=== PATIENT | female | born 1965 | race Caucasian/White ===

== ENCOUNTER 2023-11-25 16:40 | Emergency (ER) | payer MEDICAID ==
[~2023-11-25] VITALS: Ht 162.6 cm; Wt 65.8 kg
[2023-11-25 16:46] VITALS: BP 138/90; PULSE 114; RESP 18; TEMP 98.2; O2SAT 97
[2023-11-25 17:22] VITALS: O2SAT 97
[2023-11-25 18:06] LABS: BASOPHILS % (AUTO) 0.6 % (0.0-2.0); EOSINOPHILS % (AUTO) 0.7 % (0.0-4.0); HEMATOCRIT 39.7 % (36-48); HEMOGLOBIN 13.5 g/dL (12.0-16.0); LYMPHOCYTES # (AUTO) 1.6 K/uL (2.5-16.5); MEAN CORPUSCULAR HEMOGLOBIN 31 pg (27-31); MEAN CORPUSCULAR HGB CONC 34 g/dL (33-37); MEAN CORPUSCULAR VOLUME 90.8 fL (80-94); MONOCYTES # (AUTO) 0.5 K/uL (0.8-1.0); MONOCYTES % (AUTO) 7.9 % (1.7-9.3); NEUTROPHILS # (AUTO) 4.6 K/uL (1.8-7.7); NEUTROPHILS % (AUTO) 67.8 % (42.2-75.2); PLATELET COUNT (AUTO) 214 K/uL (140-450); RED BLOOD CELL COUNT(AUTO) 4.38 MIL/uL (4.20-5.40); RED CELL DISTRIBUTION WIDTH 13.9 % (11.6-13.7); WHITE BLOOD COUNT (AUTO) 6.9 K/uL (4.8-10.8)
[2023-11-25] MEDS: NACL 0.9% 1,000 ML IV ONE (18:06)
[2023-11-25] MEDS: KETOROLAC 30 MG/ML VIAL IVP ONE (18:24)
[2023-11-25] MEDS: LORazepam 2 MG/ML VIAL IVP ONE (18:24)
[2023-11-25] MEDS: ONDANSETRON 4 MG/2 ML VIAL IVP ONE (18:25)
[2023-11-25 18:27] LABS: ANION GAP 12.3 (8-16); CALCIUM 9.9 mg/dL (8.5-10.1); CARBON DIOXIDE 27.2 mmol/L (21-32); CREATININE 0.8 mg/dL (0.6-1.3); POTASSIUM 3.5 mmol/L (3.5-5.1)
[2023-11-25 18:31] LABS: ALBUMIN 3.8 g/dL (3.4-5.0); BILIRUBIN,DIRECT 0.1 mg/dL (0.0-0.3); TOTAL BILIRUBIN 0.3 mg/dL (0.0-1.0); TOTAL PROTEIN, SERUM 9.5 g/dL (6.4-8.2)
[2023-11-25 18:58] LABS: APPEARANCE,URINE CLEAR (CLEAR); BILIRUBIN,URINE NEGATIVE (NEGATIVE); BLOOD, URINE TRACE-L (NEGATIVE); COLOR,URINE YELLOW (YELLOW); LEUKOCYTE ESTERASE ,URINE NEGATIVE (NEGATIVE); NITRITE, URINE NEGATIVE (NEGATIVE); PROTEIN,URINE NEGATIVE (NEGATIVE); UGLUCOSE NEGATIVE (NEGATIVE); UROBILINOGEN,URINE 0.2 EU/dL (0.2 - 1)
[2023-11-25 19:09] VITALS: BP 130/80; PULSE 81; RESP 15; TEMP 98.2
[2023-11-25 19:10] VITALS: O2SAT 97
[2023-11-25 19:11] LABS: BACTERIA,URINE FEW /HPF (None Seen); RBC,URINE 0-5 /HPF (0-5); SQUAMOUS EPITHELIAL CELL,UR 0-3 (FEW) /LPF (0-3 (FEW)); WBC,URINE 0-5 /HPF (0-5)
[2023-11-25] MEDS ORDERED: METO-485 PO (20:08)
[2023-11-25] MEDS ORDERED: MIRABULK PO (20:08)
[2023-11-25] MEDS ORDERED: FAMO-90 PO (20:08)
== END 2023-11-25 20:36 | disposition home or self-care (01) ==
LOC: MED 16:40
DX: K59.00 Constipation, unspecified (principal); R11.2 Nausea with vomiting, unspecified; Z79.899 Other long term (current) drug therapy; Z88.0 Allergy status to penicillin; Z88.6 Allergy status to analgesic agent
CPT/HCPCS: 36415; 74176; 80048; 80076; 81001; 83605; 83690; 85025; 87040; 96361; 96374; 96375; 99285; J1885; J2060; J2405; J7030